=== PATIENT | female | born 1945 | race Caucasian/White ===

== ENCOUNTER → 2017-06-28 | Outpatient (CLI) | payer MEDICARE, OTHER | END | disposition home or self-care (01) | LOC: LABWHC1 10:18 | PROVIDERS: ATTEND Psychiatry & Neurology Psychiatry | DX: F31.60 Bipolar disorder, current episode mixed, unspecified (principal); Z79.899 Other long term (current) drug therapy | CPT/HCPCS: 36415; 80178 ==

== ENCOUNTER → 2018-05-30 | Outpatient (CLI) | payer MEDICARE, OTHER | END | disposition home or self-care (01) | LOC: LABWHC1 12:39 | PROVIDERS: ATTEND Psychiatry & Neurology Psychiatry | DX: F31.60 Bipolar disorder, current episode mixed, unspecified (principal); Z79.899 Other long term (current) drug therapy | CPT/HCPCS: 36415; 80178 ==

== ENCOUNTER → 2018-08-14 | Outpatient (CLI) | payer MEDICARE, OTHER | LOC: LABWHC1 10:17 | PROVIDERS: ATTEND Psychiatry & Neurology Psychiatry | DX: F31.60 Bipolar disorder, current episode mixed, unspecified (principal); Z79.899 Other long term (current) drug therapy | CPT/HCPCS: 36415; 80178 ==

== ENCOUNTER → 2018-09-25 | Outpatient (CLI) | payer MEDICARE, OTHER ==
[2018-09-25 15:49] LABS: Lithium 0.6 mmol/L (1.0-1.2)
== END | disposition home or self-care (01) ==
LOC: LABWHC1 11:30
PROVIDERS: ATTEND Psychiatry & Neurology Psychiatry
DX: F31.60 Bipolar disorder, current episode mixed, unspecified (principal); Z79.899 Other long term (current) drug therapy
CPT/HCPCS: 36415; 80178; 82565; 84520

== ENCOUNTER → 2018-11-07 | Outpatient (CLI) | payer MEDICARE, OTHER | END | disposition home or self-care (01) | LOC: LABWHC1 11:37 | PROVIDERS: ATTEND Psychiatry & Neurology Psychiatry | DX: F31.60 Bipolar disorder, current episode mixed, unspecified (principal); Z79.899 Other long term (current) drug therapy | CPT/HCPCS: 36415; 80178 ==

== ENCOUNTER → 2018-12-08 | Outpatient (CLI) | payer MEDICARE, OTHER ==
[2018-12-08 12:17] LABS: Basophils % (A) 0 %; Eosinophils # (A) 0.1 k/uL (0-0.7); Eosinophils % (A) 2 %; HCT 33.2 % (34.0-46.0); HGB 10.5 gm/dL (11.4-16.0); Lymphocytes # (A) 0.9 k/uL (1.0-4.8); Lymphocytes % (A) 17 %; MCH 31.8 pg (25.0-35.0); MCHC 31.7 g/dL (31.0-37.0); MCV 100.2 fL (80.0-100.0); Mean Platelet Volume 7.2; Monocytes # (A) 0.2 k/uL (0-1.0); Monocytes % (A) 4 %; Neutrophils # (A) 4.1 k/uL (1.3-7.7); Neutrophils % (A) 75 %; Platelet Count 209 k/uL (150-450); RBC 3.31 m/uL (3.80-5.40); RDW 13.2 % (11.5-15.5); WBC 5.4 k/uL (3.8-10.6)
[2018-12-08 12:42] LABS: Appearance,Urine Clear (Clear); Bilirubin,Urine Negative (Negative); Blood,Urine Negative (Negative); Color,Urine Light Yellow; Glucose,Urine (UA) Negative (Negative); Ketones,Urine Negative (Negative); Leukocyte Esterase,Urine Small (Negative); Nitrite,Urine Negative (Negative); Protein,Urine Negative (Negative); RBC,Urine 1 /hpf (0-5); Specific Gravity,Urine 1.007 (1.001-1.035); Squamous Epithelial Cell,Urine <1 /hpf (0-4); Urobilinogen,Urine <2.0 mg/dL (<2.0); WBC,Urine 2 /hpf (0-5)
[2018-12-08 20:47] LABS: ALT 21 U/L (8-44); AST 26 U/L (13-35); Albumin/Globulin Ratio 2.47 (1.20-2.10); Alkaline Phosphatase 50 U/L (41-126); Calcium 8.3 mg/dL (8.7-10.3); Carbon Dioxide 22.5 mmol/L (21.6-31.8); Chloride 111 mmol/L (96-109); Cholesterol 158 mg/dL (0-200); Creatine Kinase 99 U/L (26-186); Globulin 1.7 g/dL (1.6-3.3); Glucose 82 mg/dL (70-110); LDL Cholesterol,Calculated 67.6 mg/dL (0.0-131.0); Lithium <0.1 mmol/L (1.0-1.2); Magnesium 2.1 mg/dL (1.5-2.4); Potassium 4.4 mmol/L (3.5-5.5); Sodium 144 mmol/L (135-145); Total Bilirubin 0.3 mg/dL (0.3-1.2); Total Protein 5.9 g/dL (6.2-8.2); Uric Acid 5.4 mg/dL (2.9-7.7)
[2018-12-09 01:44] LABS: Hemoglobin A1C 5.3 % (4.0-6.0)
== END | disposition home or self-care (01) ==
LOC: LABWHC1 11:01
PROVIDERS: ATTEND Psychiatry & Neurology Psychiatry
DX: E78.00 Pure hypercholesterolemia, unspecified (principal); N18.3 Chronic kidney disease, stage 3 (moderate); E03.9 Hypothyroidism, unspecified; E55.9 Vitamin D deficiency, unspecified; F31.60 Bipolar disorder, current episode mixed, unspecified; Z79.899 Other long term (current) drug therapy
CPT/HCPCS: 36415; 80053; 80061; 80178; 81001; 82306; 82550; 83036; 83735; 84439; 84443; 84550; 85025

== ENCOUNTER → 2020-05-05 | Outpatient (CLI) | payer MEDICARE, OTHER ==
[~2020-05-05] MED LIST: DENOSUMAB 60 MG/ML 1 ML SYRINGE SQ NR
[2020-05-05 13:41] VITALS: BP 134/74; PULSE 92; RESP 16; TEMP 98.6
== END | disposition home or self-care (01) ==
LOC: PROCWHC3 13:10
PROVIDERS: ATTEND Internal Medicine
DX: M81.0 Age-related osteoporosis without current pathological fracture (principal)
CPT/HCPCS: 96372; J0897

== ENCOUNTER → 2020-12-08 | Outpatient (CLI) | payer MEDICARE, OTHER ==
[2020-12-08 13:17] VITALS: BP 142/74; PULSE 85; RESP 16; TEMP 97.9
== END | disposition home or self-care (01) ==
LOC: PROCWHC3 12:50
PROVIDERS: ATTEND Internal Medicine
DX: M81.0 Age-related osteoporosis without current pathological fracture (principal)
CPT/HCPCS: 96372; J0897

== ENCOUNTER → 2021-06-13 | Outpatient (CLI) | payer MEDICARE, OTHER ==
[2021-06-13 14:22] VITALS: BP 149/76; PULSE 70; RESP 16; TEMP 97.3
== END ==
LOC: PROCWHC3 13:43
PROVIDERS: ATTEND Internal Medicine
DX: M81.0 Age-related osteoporosis without current pathological fracture (principal); Z87.891 Personal history of nicotine dependence
CPT/HCPCS: 96372; J0897

== ENCOUNTER → 2021-12-18 | Outpatient (CLI) | payer MEDICARE, OTHER ==
[~2021-12-18] MED LIST changes: -DENOSUMAB 60 MG/ML 1 ML SYRINGE SQ NR; +DENOSUMAB 60 MG/ML 1 ML SYRINGE SQ ONE
[2021-12-18 13:15] VITALS: BP 157/88; PULSE 85; RESP 16; TEMP 98.3
== END ==
LOC: PROCWHC3 12:58
PROVIDERS: ATTEND Internal Medicine
DX: M81.0 Age-related osteoporosis without current pathological fracture (principal); Z87.891 Personal history of nicotine dependence
CPT/HCPCS: 96372; J0897

== ENCOUNTER → 2022-06-18 | Outpatient (CLI) | payer MEDICARE, OTHER ==
[~2022-06-18] MED LIST changes: +DENOSUMAB 60 MG/ML 1 ML SYRINGE SQ NR; -DENOSUMAB 60 MG/ML 1 ML SYRINGE SQ ONE
[2022-06-18 12:56] VITALS: RESP 16
[2022-06-18 13:01] VITALS: BP 150/82; PULSE 85; TEMP 98.3
== END ==
LOC: PROCWHC3 12:52
PROVIDERS: ATTEND Internal Medicine
DX: M81.0 Age-related osteoporosis without current pathological fracture (principal); Z87.891 Personal history of nicotine dependence
CPT/HCPCS: 96372; J0897

== ENCOUNTER → 2023-01-03 | Outpatient (CLI) | payer MEDICARE, OTHER ==
[2023-01-03 11:16] VITALS: BP 144/82; PULSE 84; RESP 16; TEMP 98.2
== END ==
LOC: PROCWHC3 10:35
PROVIDERS: ATTEND Internal Medicine
DX: M81.0 Age-related osteoporosis without current pathological fracture (principal); Z88.8 Allergy status to other drugs, medicaments and biological substances; Z88.6 Allergy status to analgesic agent; Z87.891 Personal history of nicotine dependence
CPT/HCPCS: 96372; J0897

== ENCOUNTER → 2023-09-05 | Outpatient (CLI) | payer MEDICARE, OTHER ==
[2023-09-05 14:25] VITALS: BP 149/78; PULSE 80; RESP 15; TEMP 98.1
== END ==
LOC: PROCWHC3 13:48
PROVIDERS: ATTEND Internal Medicine
DX: M81.0 Age-related osteoporosis without current pathological fracture (principal)
CPT/HCPCS: 96372; J0897

== ENCOUNTER → 2024-03-12 | Outpatient (CLI) | payer MEDICARE, OTHER ==
[2024-03-12] MEDS: DENOSUMAB 60 MG/ML 1 ML SYRINGE SQ ONE (14:25)
[2024-03-12 15:02] VITALS: BP 153/79; PULSE 93; RESP 14; TEMP 97.8
== END ==
LOC: PROCWHC3 14:14
PROVIDERS: ATTEND Family Medicine
DX: M81.0 Age-related osteoporosis without current pathological fracture (principal)
CPT/HCPCS: 96372; J0897

== ENCOUNTER → 2024-09-14 | Outpatient (CLI) | payer MEDICARE, OTHER ==
[2024-09-14 14:41] VITALS: RESP 16; TEMP 97.5
[2024-09-14] MEDS: DENOSUMAB 60 MG/ML 1 ML SYRINGE SQ NR (14:42)
[2024-09-14 14:48] VITALS: BP 137/83; PULSE 80
== END ==
LOC: PROCWHC3 14:35
PROVIDERS: ATTEND Internal Medicine
DX: M81.0 Age-related osteoporosis without current pathological fracture (principal)
CPT/HCPCS: 96372

== ENCOUNTER → 2025-02-03 | Outpatient (CLI) | payer MEDICARE, OTHER ==
--- NOTE | 2025-02-03 19:56 | MR ---
EXAMINATION TYPE: MR abdomen wo/w con DATE OF EXAM: 02/03/2025 6:32 PM COMPARISON: MRI 08/27/2023 CLINICAL INDICATION: Female, 79 years old with history of K86.9; PHH, Disease of pancreas, Hx Breast cancer with double mastectomy, Colon resection, Gallbladder removed TECHNIQUE: Multiplanar multi-sequence imaging was performed without contrast. Post contrast imaging was performed. Post IV contrast subtraction images were also submitted for review. IV Contrast: 4.5 mL Gadobutrol FINDINGS: ABDOMEN Liver: No evidence for hepatic steatosis or cirrhosis. Scattered simple appearing hepatic cysts are p resent. No abnormal contrast enhancement that is suspicious. Gallbladder and Bile ducts: Gallbladder appears surgically absent. Common hepatic duct measures up to 10 mm in thickness. There is central intrahepatic biliary dilation. The main bile duct appears dilat ed and is able to be traced from the common hepatic duct. Pancreas: Pancreatic divisum morphology, with Cystic pancreatic head lesion measuring up to 4.0 x 3.4 cm this is not significantly changed in size. Some of the mass looks tubular. There is upstream dila tion of the main pancreatic duct which is markedly dilated up to 1.5 cm which is thought to be due to compression near the pancreatic divisum attachment at the accessory duct; No definitive postcontrast enhancement of this lesion. Spleen: Normal for size. Adrenal glands: Unremarkable. Kidneys: Innumerable tiny cysts throughout the kidneys as well as larger cysts which are probably sim ple appearing few may have thin septations. No abnormal suspicious contrast enhancement. Sinuses have intrinsic high T1 signal suggesting proteinaceous/hemorrhagic component. No evidence for obstructive uropathy. No suspicious renal masses. Stomach and Bowel: No evidence for bowel wall thickening or evidence for obstruction.. Large stool b urden throughout the colon. Peritoneum: No evidence of pneumoperitoneum or free fluid. Vasculature: No aortic aneurysm. Musculoskeletal: The osseous structures appear intact. Severe degeneration changes with scoliosis of the spine. Mild degeneration changes with osteophyte formation. Lymph Nodes: No gross evidence for lymphadenopathy. Abdominal wall: Unremarkable. IMPRESSION: 1. Stable findings of colon Pancreatic head cystic lesion with upstream dilation of the main pancrea tic duct and extra hepatic biliary system. Some of the cystic lesion does have a tubular-like appeara nce. Given these findings pancreatic cystic neoplasm can be considered as well as tortuous redundant pancreatic accessory side branch ducts obstructing outflow. There is pancreatic divisum morphology no cherelle. Consider ERCP for real-time evaluation of the ducts. Follow-up in 12 months with MRI recommended . 2. Bilateral Bosniak type I and type II renal cysts. No definitive enhancement are visualized. 3. Multiple benign-appearing hepatic cysts. [facility], , 02/03/2025 7:53 PM
== END | disposition home or self-care (01) ==
LOC: RADMRIMAIN 17:15
PROVIDERS: ATTEND Internal Medicine
DX: K86.2 Cyst of pancreas (principal); N28.1 Cyst of kidney, acquired; K76.89 Other specified diseases of liver; K83.2 Perforation of bile duct
CPT/HCPCS: 74183; A9585